=== PATIENT | female | born 1985 | race Caucasian/White ===

== ENCOUNTER 2018-10-05 05:03 | Observation (INO) ==
--- NOTE | 2018-10-05 05:21 | Emergency Department Note ---
Abdominal Pain HPI - General Chief Complaint: Abdominal Pain Stated Complaint: abdominal pain Time Seen by Provider: 10/05/18 05:10 Source: patient Mode of arrival: ambulatory Limitations: no limitations - History of Present Illness HPI Narrative: 33-year-old female complaining of midepigastric pain present for the past 2 years which comes on intermittently. She was evaluated at [facility] for the same pain stated that the work-up was negative. Was seen last week in [facility] emergency department ED laboratory tests revealed negative work-up as well including lipase and CMP's. Patient had one episode of vomiting today. Is been no diarrhea constipation or hematemesis or melena. Denies urgency frequency or dysuria. She did have alcohol 3 days ago . She smokes a half a pack of cigarettes a day. Her primary care provider is Ally Anthony she has not complained to her about this. She has had no previous abdominal surgeries no cholecystectomy no appendectomy is no hernia repairs. She has had previous only.Temperature is 98.3 the pulse is 78 the respirations are 18 blood pressure 181/32 pulse ox 100% rates the pain is a 12/27 - Related Data Allergies Allergy/AdvReac Type Severity Reaction Status Date / Time iodine Allergy Verified 09/28/18 23:35 latex Allergy Verified 09/28/18 23:35 Penicillins Allergy Verified 09/28/18 23:35 shellfish derived Allergy Verified 09/28/18 23:35 Review of Systems All systems ED: reviewed and negative except as stated. Gastrointestinal: Reports: abdominal pain, nausea, vomiting. 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 Absent: tenderness Respiratory: Present: normal lung sounds bilaterally. Absent: respiratory distress, rales/crackles Cardiovascular: Present: regular rate, normal rhythm Abdominal: Present: tenderness, normal bowel sounds. Absent: guarding, rebound, rigidity Abdominal tenderness: Present: epigastrium Extremities: Present: normal inspection, full ROM. Absent: tenderness Back: Present: normal inspection, full ROM. Absent: tenderness Neurological: Present: alert, oriented X3, CN II-XII intact Psychiatric: Present: normal affect, depressed Skin: Present: warm, dry Course Vital Signs Temperature 98.3 F 10/05/18 05:04 Pulse Rate 78 10/05/18 05:04 Respiratory Rate 18 10/05/18 05:04 Blood Pressure 181/132 10/05/18 05:04 Pulse Oximetry (%) 100 10/05/18 05:04 Temperature 98.3 F 10/05/18 05:04 Pulse Rate 71 10/05/18 08:31 Respiratory Rate 18 10/05/18 05:04 Blood Pressure 130/82 10/05/18 08:31 Pulse Oximetry (%) 100 10/05/18 08:31 Abdominal Pain - MDM Narrative Medical decision making narrative: UA shows 80 RBCs per high-power field but patient is on a. Is no bacteria no culture has been ordered for him is 141 potassium 3.7 the BUN is 11 creatinine 0.7 bilirubin is 0.3 the AST is 20 ALT of 30 and alk phos 361 the lipase is 49 wBC is 7200 the hemoglobin 14.0 hematocrit of 42.9. - Lab Data Result diagrams: 10/05/18 05:32 10/05/18 05:32 Lab Results 10/05/18 10/05/18 10/05/18 Range/Units 05:32 05:32 06:14 WBC 7.2 (4.5-11.0) K/mcL RBC 5.14 (4.00-5.20) M/mcL Hgb 14.0 (12.0-15.0) g/dL Hct 42.9 (36.0-48.0) % MCV 83.4 (80.0-100.0) fL MCH 27.2 (26.0-34.0) pg MCHC 32.6 (31.0-36.0) g/dL RDW 15.3 H (11.5-14.5) % Plt Count 316 (140-440) K/mcL MPV 8.6 (7.4-10.4) fL Gran % 60.8 (38.0-78.0) % Lymph % (Auto) 26.4 (15.5-49.0) % [place] % (Auto) 8.3 (1.0-12.0) % Eos % (Auto) 3.9 (0.0-7.0) % Baso % (Auto) 0.6 (0.0-2.0) % Gran # 4.4 (1.8-8.0) K/mcL Lymph # (Auto) 1.9 (1.5-4.8) K/mcL [place] # (Auto) 0.6 (0.1-0.9) K/mcL Eos # (Auto) 0.3 (0.0-0.7) K/mcL Baso # (Auto) 0 (0.0-0.3) K/mcL Sodium 141 (133-145) mmol/L Potassium 3.7 (3.3-5.1) mmol/L Chloride 106 (96-108) mmol/L Carbon Dioxide 22 (22-30) mmol/L Anion Gap 13.0 (8-16) BUN 11 (6-20) mg/dl Creatinine 0.7 (0.6-1.1) mg/dl GFR Calculation 113 Glucose 94 (70-105) mg/dL Calcium 8.8 (8.6-10.4) mg/dl Total Bilirubin 0.3 (0.0-1.0) mg/dL AST 20 (0-37) U/l ALT 30 (0-40) U/l Alkaline Phosphatase 61 (39-117) U/L Total Protein 7.4 (5.9-8.4) gm/dL Albumin 4.2 (3.2-5.2) gm/dL Globulin 3.2 (2.2-3.7) gm/dL Albumin/Globulin Ratio 1.3 (1.0-2.3) Amylase 47 (28-100) U/L Lipase 49 (7-60) U/L Urine Color Yellow Urine Appearance Clear Urine pH 5.5 (5.0-9.0) Ur Specific Novelty > 1.030 (1.000-1.035) Urine Protein Trace (NEG) mg/dL Urine Glucose (UA) Norm (NEG) mg/dL Urine Ketones Neg (NEG) mg/dL Urine Occult Blood 3+ (large) A (<5) nelson/mcL Urine Nitrate Neg (NEG) Urine Bilirubin Neg (NEG) mg/dL Urine Urobilinogen Norm (NEG) mg/dL Ur Leukocyte Esterase Neg (NEG) /uL Urine RBC 80 H (0-1) /hpf Urine WBC 10 H (0-4) /hpf Ur Squamous Epith Cells 7 H (0-4) /hpf Urine Bacteria 0 (0) /hpf Urine Mucus Mod (0) /hpf Ur Culture Indicated? No Disposition Pt seen by TECHNICAL PROJECT COORDINATOR/PA only: No Clinical Impression: Cholelithiasis and acute cholecystitis without obstruction Clinical Impression: (Ruled Out): Cholecystitis with cholangitis Disposition: Xfer As Inpt ([facility]) Condition: Fair Referrals: Lorraine Anthony ARNP [Primary Care Provider] - Time of Disposition: 09:02
[2018-10-05] MEDS ORDERED: PANTOPRAZOLE 40 MG VIAL IV ONE (05:23)
[2018-10-05] MEDS ORDERED: 0.9 % SODIUM CHLORIDE 1,000 ML IV ONE (05:23)
[2018-10-05] MEDS ORDERED: ONDANSETRON 4 MG/2 ML VIAL ONE (05:42)
[2018-10-05] MEDS ORDERED: ESOMEPRAZOLE 40 MG VIAL IV SCH (05:45)
[2018-10-05] MEDS ORDERED: ONDANSETRON 4 MG/2 ML VIAL IV ONE (05:47)
[2018-10-05 06:23] LABS: Basophils # (Auto) 0 K/mcL (0.0-0.3); Basophils % (Auto) 0.6 % (0.0-2.0); Eosinophils # (Auto) 0.3 K/mcL (0.0-0.7); Eosinophils % (Auto) 3.9 % (0.0-7.0); Granulocytes % (Auto) 60.8 % (38.0-78.0); Hematocrit 42.9 % (36.0-48.0); Lymphocytes # (Auto) 1.9 K/mcL (1.5-4.8); Lymphocytes % (Auto) 26.4 % (15.5-49.0); Mean Cell Volume 83.4 fL (80.0-100.0); Mean Corpuscular HGB Conc 32.6 g/dL (31.0-36.0); Mean Platelet Volume 8.6 fL (7.4-10.4); Monocytes # (Auto) 0.6 K/mcL (0.1-0.9); Monocytes % (Auto) 8.3 % (1.0-12.0); Platelet Count 316 K/mcL (140-440); RBC 5.14 M/mcL (4.00-5.20); Red Cell Distribution Width 15.3 % (11.5-14.5); WBC 7.2 K/mcL (4.5-11.0)
[2018-10-05 06:39] LABS: ALT/SGPT 30 U/l (0-40); AST/SGOT 20 U/l (0-37); Albumin 4.2 gm/dL (3.2-5.2); Albumin/Globulin Ratio 1.3 (1.0-2.3); Alkaline Phosphatase 61 U/L (39-117); Amylase 47 U/L (28-100); Bilirubin,Total 0.3 mg/dL (0.0-1.0); Blood Urea Nitrogen 11 mg/dl (6-20); Calcium 8.8 mg/dl (8.6-10.4); Carbon Dioxide 22 mmol/L (22-30); Chloride 106 mmol/L (96-108); Globulin 3.2 gm/dL (2.2-3.7); Glomerular Filtration Rate 113; Glucose 94 mg/dL (70-105)
[2018-10-05 07:35] LABS: Appearance,Urine CLEAR; Bacteria,Urine 0 /hpf (0); Bilirubin,Urine NEG (NEG); Color,Urine YELLOW; Culture Indicated,Urine NO; Glucose,Urine (UA) NORM (NEG); Ketones,Urine NEG (NEG); Leukocyte Esterase,Urine NEG /uL (NEG); Mucus,Urine MOD /hpf (0); Nitrate,Urine NEG (NEG); PH,Urine 5.5 (5.0-9.0); Protein,Urine TRACE mg/dL (NEG); Specific Gravity,Urine > 1.030 (1.000-1.035); Urine Blood 3+ (LARGE) ery/mcL (<5); Urine RBC 80 /hpf (0-1); Urine Squamous Epithelial Cell 7 /hpf (0-4); Urine WBC 10 /hpf (0-4); Urobilinogen,Urine NORM (NEG)
--- NOTE | 2018-10-05 08:18 | Ultrasound Report ---
CLINICAL INFORMATION: Midepigastric pain radiates to the back COMPARISON: None. FINDINGS: The liver is markedly enlarged - 22 cm in vertical dimension. It is diffusely hyperechoic compatible with fatty change or other diffuse hepatocellular process. No focal hepatic lesions. Multiple stones in the gallbladder range up to 12 mm. The gallbladder wall is thickened (6 mm) with focal tenderness. Common bile duct is dilated 9 mm. Pancreas is normal. No free fluid IMPRESSION: 1. Cholecystitis - thickened gallbladder wall with focal tenderness multiple stones. 2. Mild dilatation of the common bile duct suggesting the possibly of distal choledocholithiasis. (Distal intraductal stones are typically not identified sonographically) 3. Moderate hepatomegaly suggesting diffuse infiltrative pathology such as inflammation etc. Interpreted and Authenticated by: Jayme Figueroa 10/05/18
[2018-10-05] MEDS ORDERED: HYDROmorphone 2 MG/ML VIAL IV ONE (09:21)
[2018-10-05] MEDS: 0.9 % SODIUM CHLORIDE 1,000 ML IV SCH ×2 (11:37→21:49)
[2018-10-05] MEDS ORDERED: HYDROmorphone 2 MG/ML VIAL IV PRN (14:04)
[2018-10-05] MEDS: oxyCODONE/APAP 5/325MG TABLET PO PRN ×2 (14:30→19:01)
[2018-10-05] MEDS: NICOTINE 21 MG PATCH TOPICAL SCH (15:12)
--- NOTE | 2018-10-05 15:17 | General Surg History&Physical ---
History of Present Illness Patient information: Note initiated : 10/05/18 at 3:15 pm Service Date, if different from initiated Date: [] Patient: Ambreen Hannah a 33 y/o F admitted on 10/05/18 for Abdominal Pain. Chief Complaint: [] HPI: Ms. Hannah is a 33 year old F admitted with cholelithiasis with cholecystitis. The patient has a two-year history of right upper quadrant pain radiating through to her back with associated nausea and vomiting. She has been treated in multiple emergency rooms without diagnosis. PMH. She was seen in our emergency room on the and discharged. She will return because of increasing pain, nausea and vomiting. Ultrasound shows thickened gallbladder wall with multiple stones. She's not had any change in urine or stool color. Her LFTs have been totally normal. Review of Systems All systems PM: reviewed and no additional remarkable complaints except as stated (except as noted below) - Constitutional weight gain - Gastrointestinal abdominal pain, dyspepsia, heartburn, nausea, vomiting - Musculoskeletal back pain, joint swelling, stiffness Past History Past medical history: Hypertension Hypothyroidism Past surgical history: 3. Bilateral foot surgery Past family history: Mother age 69 with COPD, history of lung cancer, diabetes mellitus, chronic kidney disease. Father age 42 due to suicide. 2 brothers age 40 and 50 in good health Past social history: Smokes tobacco daily. Drinks alcohol every 2 weeks. Denies drug use Medications and Allergies Home Medications Medication Instructions Recorded Confirmed Type No Known Home Meds 10/05/18 10/05/18 History Allergies Allergy/AdvReac Type Severity Reaction Status Date / Time Penicillins Allergy Severe Difficulty Verified 10/05/18 14:06 Breathing iodine Allergy Intermediate Hives on Verified 10/05/18 14:06 Tongue shellfish derived Allergy Intermediate Hives on Verified 10/05/18 14:06 Tongue latex Allergy Mild Hives Verified 10/05/18 14:06 Exam Temp Pulse Resp BP Pulse Ox 97.2 F 65 16 104/67 98 10/05/18 14:58 10/05/18 10:48 10/05/18 14:58 10/05/18 14:58 10/05/18 14:58 - General physical appearance well developed, well nourished, moderate pain, obese - Eyes PERRL, normal ocular movement. negative: icteric - ENT normal pinna, normal nares, normal mucosa, no hearing loss, no congestion - Head Head exam IM: Present: atraumatic, normocephalic - Neck no masses, no bruits, trachea midline, no lymphadenopathy, no venous distension - Cardiovascular Cardiovascular exam IM: Present: normal rate and rhythm, RRR, +S1, +S2. Absent: JVD, tachycardia - Respiratory normal expansion, normal respiratory effort, clear to auscultation - Abdomen Abdomen: Present: soft, tender (mild right upper quadrant tenderness), bowel sounds Hernia: Present: none - Genitourinary Present: normal external genitalia - Integumentary Present: no rash, no growths, no abnormal pigmentation - Neurologic Present: normal coordination, normal sensation - Musculoskeletal Present: normal gait, normal posture - Psychiatric Present: oriented to time, oriented to person, oriented to place, speech is normal, memory intact Assessment and Plan (1) Cholelithiasis and acute cholecystitis without obstruction Patient will be continued on IV antibiotics tonight. She is counseled for laparoscopic cholecystectomy to be performed tomorrow. Status: Acute (2) Hypertension Status: Acute (3) Hypothyroidism Status: Acute
[2018-10-05] MEDS: cefTRIAXone 2 GM in DEXTROSE 5% IN WATER 50 ML IV SCH (16:49)
[2018-10-05] MEDS: ONDANSETRON 4 MG/2 ML VIAL IV PRN (19:01)
[2018-10-06] MEDS: oxyCODONE/APAP 5/325MG TABLET PO PRN ×4 (00:28→21:47)
[2018-10-06] MEDS: ONDANSETRON 4 MG/2 ML VIAL IV PRN ×2 (00:29→06:33)
[2018-10-06] MEDS ORDERED: SCOPOLAMINE 1 PATCH PATCH TOPICAL PRN ×2 (06:00→11:43)
[2018-10-06] MEDS ORDERED: IPRATROPIUM/ALBUTEROL 3 ML AMPUL.NEB NEB PRN ×3 (06:00→11:43)
[2018-10-06] MEDS: 0.9 % SODIUM CHLORIDE 1,000 ML IV SCH ×3 (08:02→22:35)
[2018-10-06] MEDS ORDERED: KETAMINE 100 MG/ML ML IV ONE (09:10)
[2018-10-06] MEDS ORDERED: DEXAMETHASONE 10 MG/ML VIAL IV ONE (09:10)
[2018-10-06] MEDS ORDERED: LIDOCAINE HCL/PF 100 MG/5 ML SYRINGE IV ONE (09:10)
[2018-10-06] MEDS ORDERED: fentaNYL 250 MCG/5 ML VIAL IV ONE (09:10)
[2018-10-06] MEDS ORDERED: ONDANSETRON 4 MG/2 ML VIAL IV ONE (09:10)
[2018-10-06] MEDS ORDERED: ROCURONIUM 10 MG/ML ML IV ONE (09:10)
[2018-10-06] MEDS ORDERED: PROPOFOL 200 MG/20 ML VIAL IV ONE (09:10)
[2018-10-06] MEDS ORDERED: SUCCINYLCHOLINE 20 MG/ML ML IV ONE (09:10)
[2018-10-06] MEDS ORDERED: MIDAZOLAM 5 MG/5 ML VIAL IV ONE (09:10)
[2018-10-06] MEDS ORDERED: GLYCOPYRROLATE 0.2 MG/ML VIAL IV ONE (09:10)
[2018-10-06] MEDS ORDERED: KETOROLAC 30 MG/ML VIAL IV ONE (09:10)
[2018-10-06] MEDS ORDERED: HYDROmorphone 2 MG/ML VIAL IV ONE (09:10)
[2018-10-06] MEDS ORDERED: SUGAMMADEX SODIUM 200 MG/2 ML VIAL IV ONE (09:10)
[2018-10-06] MEDS ORDERED: NALOXONE HCL 0.4 MG/ML VIAL IV PRN (09:41)
[2018-10-06] MEDS ORDERED: ACETAMINOPHEN 1,000 MG/100 ML BOTTLE IV ONE (09:41)
[2018-10-06] MEDS ORDERED: FLUMAZENIL 0.1 MG/ML ML IV PRN (09:41)
[2018-10-06] MEDS ORDERED: PROMETHAZINE 25 MG/ML VIAL IM PRN (09:41)
[2018-10-06] MEDS ORDERED: LACTATED RINGERS 250 ML IV PRN (09:41)
[2018-10-06] MEDS ORDERED: ONDANSETRON 4 MG/2 ML VIAL IV PRN ×3 (09:41→11:43)
[2018-10-06] MEDS ORDERED: BENZOCAINE/MENTHOL 1 LOZENGE PO PRN (09:41)
[2018-10-06] MEDS ORDERED: MEPERIDINE 50 MG/ML INJECTION IM PRN (09:41)
[2018-10-06] MEDS ORDERED: METHOCARBAMOL 1,000 MG/10 ML VIAL IV PRN (09:41)
[2018-10-06] MEDS ORDERED: LACTATED RINGERS 1,000 ML IV SCH (09:45)
[2018-10-06] MEDS ORDERED: BUTALB/ACETAMINOPHEN/CAFFEINE 1 TABLET PO PRN (10:42)
[2018-10-06] MEDS ORDERED: HYDROmorphone 2 MG/ML VIAL IV PRN (10:42)
[2018-10-06] MEDS ORDERED: 0.9 % SODIUM CHLORIDE 1,000 ML IV SCH (10:45)
[2018-10-06] MEDS ORDERED: hydrALAZINE 20 MG/ML VIAL IV ONE (11:06)
[2018-10-06] MEDS: fentaNYL 100 MCG/2 ML VIAL IV PRN ×4 (11:12→11:25)
[2018-10-06] MEDS: HYDROmorphone 2 MG/ML VIAL IV PRN ×2 (13:06→15:34)
[2018-10-06] MEDS: cefTRIAXone 2 GM in DEXTROSE 5% IN WATER 50 ML IV SCH (13:06)
[2018-10-06] MEDS: NICOTINE 21 MG PATCH TOPICAL SCH (16:34)
[2018-10-06] MEDS ORDERED: PANTOPRAZOLE 40 MG TABLET PO SCH (17:00)
[2018-10-06] MEDS ORDERED: ACETAMINOPHEN 1,000 MG/100 ML BOTTLE IV SCH (17:00)
[2018-10-07] MEDS: oxyCODONE/APAP 5/325MG TABLET PO PRN ×3 (02:26→11:45)
[2018-10-07 05:22] LABS: Basophils # (Auto) 0 K/mcL (0.0-0.3); Basophils % (Auto) 0 % (0.0-2.0); Eosinophils # (Auto) 0.2 K/mcL (0.0-0.7); Eosinophils % (Auto) 1.6 % (0.0-7.0); Granulocytes % (Auto) 84.6 % (38.0-78.0); Hematocrit 36.5 % (36.0-48.0); Hemoglobin 11.9 g/dL (12.0-15.0); Lymphocytes # (Auto) 0.8 K/mcL (1.5-4.8); Mean Corpuscular HGB Conc 32.7 g/dL (31.0-36.0); Mean Platelet Volume 8.8 fL (7.4-10.4); Monocytes # (Auto) 0.6 K/mcL (0.1-0.9); Monocytes % (Auto) 5.8 % (1.0-12.0); Platelet Count 313 K/mcL (140-440); RBC 4.35 M/mcL (4.00-5.20); Red Cell Distribution Width 14.9 % (11.5-14.5); WBC 10.1 K/mcL (4.5-11.0)
[2018-10-07 05:48] LABS: ALT/SGPT 98 U/l (0-40); AST/SGOT 81 U/l (0-37); Albumin 3.6 gm/dL (3.2-5.2); Albumin/Globulin Ratio 1.3 (1.0-2.3); Alkaline Phosphatase 76 U/L (39-117); Bilirubin,Direct < 0.2 mg/dL (0.0-0.3); Bilirubin,Total 0.4 mg/dL (0.0-1.0); Blood Urea Nitrogen 7 mg/dl (6-20); Calcium 8.4 mg/dl (8.6-10.4); Carbon Dioxide 18 mmol/L (22-30); Chloride 109 mmol/L (96-108); Globulin 2.7 gm/dL (2.2-3.7); Glomerular Filtration Rate 119; Glucose 110 mg/dL (70-105); Lactate Dehydrogenase 236 U/L (94-250); Phosphorous 2.5 mg/dL (2.7-4.5); Triglycerides 75 mg/dl (<150); Uric Acid 5.8 mg/dL (2.5-8.0)
[2018-10-07] MEDS: 0.9 % SODIUM CHLORIDE 1,000 ML IV SCH (08:24)
[2018-10-07] MEDS ORDERED: cefTRIAXone 2 GM in DEXTROSE 5% IN WATER 50 ML IV SCH (09:00)
[2018-10-07] MEDS ORDERED: NICOTINE 21 MG PATCH TOPICAL SCH (10:00)
--- NOTE | 2018-10-07 14:11 | Brief Operative Note ---
Date of procedure: 10/06/18 Pre-op diagnosis: acute cholecystitis with cholelithiasis Post-op diagnosis: other (, acute empyema of gallbladder with cholelithiasis) Procedure: Laparoscopic cholecystectomy Grafts/Implants: No (Nitin-Dominguez drain 1) Anesthesia: GETA Findings: Dilated inflamed gallbladder with cystic duct obstruction, multiple stones and empyema Complications: none Surgeon: Antelmo Cabrera Estimated blood loss (cc): 20 Specimens Removed/Pathology: other (gallbladder) Condition: stable Disposition: PACU
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
--- NOTE | 2018-10-09 13:27 | Surgical Pathology Report ---
HISTOLOGY SPECIMEN MICROSCOPIC DIAGNOSIS GALLBLADDER, CHOLECYSTECTOMY: -- CHRONIC CHOLECYSTITIS WITH CHOLELITHIASIS. (RLF:lidia) PROCEDURAL IMPRESSION Cholelithiasis/acute cholecystitis. GROSS DESCRIPTION Received in formalin labeled with the patient information designated gallbladder, is an 8.5 x 3.5 x 1.3 cm pink to purple-castro gallbladder. The serosal surface is smooth and glistening. There are multiple metal clips present and the cystic duct appears to have been stapled closed. Adjacent to the duct there is a 1.2 cm in diameter opening. The lumen contains a minimal amount of viscous green material and two smooth, brown multifaceted stones which are 1.0 and 1.3 cm in greatest dimension. There is an additional 1.2 cm stone within the container. The mucosa is green-castro and velvety. The wall is up to 0.8 cm thick. Grossly no lesions are identified. Manager Business Process sections submitted - one cassette. (STS:lidia) Electronically Signed by: Ambreen Sosa M.D.
--- NOTE | 2018-10-17 07:39 | Operative Note ---
DATE OF OPERATION: 10/06/2018 PREOPERATIVE DIAGNOSES: Acute cholecystitis with cholelithiasis. POSTOPERATIVE DIAGNOSES: Acute cholecystitis with empyema of the gallbladder and cholelithiasis. PROCEDURE: Laparoscopic cholecystectomy. SURGEON: Antelmo Cabrera M.D. FINDINGS: Dilated gallbladder with cystic duct obstruction and empyema with multiple stones. DESCRIPTION OF PROCEDURE: Under general anesthesia, the patient's abdomen was prepped and draped in a sterile field. A supraumbilical incision was made and Veress needle was inserted. Abdomen was insufflated with 3 liters of CO2. A 12 mm port was placed. Laparoscope was placed. A severely dilated, tense, inflamed gallbladder was noted. Under videoscopic guidance, a 12 mm port and two 5 mm ports were placed in the right subcostal region. The gallbladder could not be grasped, so it was decompressed with a Weck needle. Pure pus was removed from the gallbladder. The gallbladder wall was markedly thickened. The gallbladder was grasped at the dome and using blunt dissection, the dense adhesions to the gallbladder were removed down to the infundibulum. The infundibulum was grabbed and the area was placed on stretch. The patient had a long cystic duct with stones impacted in the duct. Two large stones were milked back from the distal cystic duct. There were no stones at the junction between the duct and the common bile ducts. The cystic duct was splayed after which the cystic artery branch that progressed to the wall of the gallbladder was noted. The cystic artery was followed onto the wall of the gallbladder, clipped with five clips and divided. The cystic duct was then further dissected. The cystic duct was stapled using the Endo KIRSTEN stapler at the confluence of the cystic duct and the lumen of the gallbladder. The gallbladder was then from the infrahepatic bed using electrocautery. The gallbladder was placed in an Endopouch and retrieved. Irrigation was carried out. A DARIEN drain was placed in the subhepatic space and brought out through the most lateral incision. There was no further bleeding from the bed. There was no bile leak. CO2 was allowed to escape from the abdomen and the ports were removed. Fascia at the umbilicus was closed with interrupted 0 Vicryl. Skin incisions were closed with tori. The patient tolerated the procedure well. He was awakened, transferred to a bed, and taken to the postanesthetic care unit in stable, satisfactory condition. LCS:sandra Job ID: [id number] Doc ID: [id number] Antelmo Cabrera M.D.
== END 2018-10-07 15:55 | disposition home or self-care (01) ==
LOC: ED 05:03 → MEDSUR 05:03
PROVIDERS: ADMIT Family Medicine Adult Medicine; ATTEND Family Medicine Adult Medicine